=== PATIENT | female | born 1955 | race Caucasian/White ===

== ENCOUNTER 2020-01-16 16:19 | Emergency (ER) | payer OTHER, SELFPAY ==
--- NOTE | ~2020-01-16 | XR_ITS ---
EXAMINATION: XR chest 2V 01/16/2020 17:20 INDICATION: Chest palpitations. Atrial fibrillation. PROCEDURE: 2 view chest COMPARISON: 03/14/2017 FINDINGS: The lungs are clear. There are calcified granulomas in the right lung base. There are kasia cystectomy clips. The cardiomediastinal silhouette is within normal limits. There are no pleural eff usions. There is no pneumothorax suspected. IMPRESSION: 1: NO ACUTE CARDIOPULMONARY DISEASE. Reviewed, dictated and finalized at location A.
[2020-01-16 16:17] VITALS: PULSE 94; RESP 20; TEMP 36.7; O2SAT 93
--- NOTE | 2020-01-16 16:25 | ECG_ITS ---
Measurements Intervals Ashley Rate: 95 P: RI: 0 QRS: -24 QRSD: 94 T: 1 QT: 372 QTc: 469 Interpretive Statements ATRIAL FIBRILLATION MISSING LEAD V3 LOW VOLTAGE IN PRECORDIAL LEADS POOR R WAVE PROGRESSION, ANTERIOR LEADS BORDERLINE T WAVE ABNORMALITY- ANTEROLAT/INF LEADS ABNORMAL ECG Electronically Signed On 01-17-2020 7:07:28 CDT by Vince Figueroa D.O.
--- NOTE | 2020-01-16 16:42 | ED.ARRPALP ---
HPI - Arrhythmia/Palpitations General Chief Complaint: Arrhythmia/Palpitations Stated Complaint: palpitations Time Seen by Provider: 01/16/20 16:27 Source: patient Mode of arrival: EMS Limitations: no limitations History of Present Illness HPI narrative: Patient 64 years old white female came from [facility] home with a chief complaint of palpitation, intermittent dizziness and shaky feeling since early a.m. History of intermittent shortness of breath for the last 1-1/2 weeks, patient on BiPAP. History of atrial fibrillation on Eliquis. Currently patient is asymptomatic. Patient telling me that she is bored to . MD complaint: palpitations Onset (ago): unknown Duration: now resolved Severity: similar to previous episodes Context: occurred during rest Arrhythmia history: atrial fibrillation Associated symptoms: anxiety Treatments prior to arrival: other (None) Related Data Home Medications Medication Instructions Recorded Confirmed atorvastatin 20 mg tablet 20 mg PO DAILY 10/08/19 cholecalciferol (vitamin D3) 50 2,000 unit PO DAILY 10/08/19 mcg (2,000 unit) tablet ibuprofen 200 mg capsule 200 mg PO Q6H PRN 10/08/19 lisinopril 20 mg tablet 20 mg PO DAILY 10/08/19 multivitamin 1 tablet PO DAILY 10/08/19 venlafaxine 75 mg capsule,extended 75 mg PO DAILY 10/08/19 release 24 hr duloxetine 30 mg PO BID 01/16/20 01/16/20 metoprolol succinate 25 mg PO DAILY 01/16/20 01/16/20 Allergies Allergy/AdvReac Type Severity Reaction Status Date / Time Cephalosporins Allergy Unknown Unknown Verified 01/16/20 16:21 Review of Systems Review of Systems: Narrative: CONSTITUTIONAL: Denies fever, chills, or sweats. EYES: Denies visual changes, redness, or discharge. ENT: Denies rhinorrhea, congestion, sore throat, or otalgia. CARDIOVASCULAR: Denies chest pain, palpitations, or edema. RESPIRATORY: Denies cough or dyspnea. GASTROINTESTINAL: Denies abdominal pain, nausea, vomiting, or diarrhea. GENITOURINARY: Denies dysuria or hematuria. SKIN: Denies rash or itching. MUSCULOSKELETAL: Denies back pain, joint pain, or myalgia. NEUROLOGIC: Denies headache, numbness, or weakness. PSYCHIATRIC: Denies anxiety or depression. [facility] Past Medical History Medical History Anemia, unspecified Central sleep apnea Chronic bilateral low back pain without sciatica Chronic fatigue, unspecified Essential hypertension Obstructive sleep apnea Other insomnia Palpitations with regular cardiac rhythm Prediabetes Pure hypercholesterolemia Shortness of breath Family History Family History Mother Carcinoma of colon Family history of malignant neoplasm of ovary Cerebrovascular accident Patient's mother is Grandparent Family history of malignant neoplasm of gastrointestinal tract Father Family history of alcoholism Family history of diabetes mellitus in first degree relative Family history of heart disease in male family member before age 55 Diabetes mellitus Family history of obesity Family history of cardiovascular disease Other Family history of lung cancer Family history of pancreatic cancer Social History Social History Smoking status: Never smoker Alcohol intake: never Exam Narrative: Exam Narrative: General appearance: Well-developed, well-nourished Skin: Normal color Head: Normocephalic, nontraumatic Eyes: Clear conjunctiva ENT: Oropharynx normal, ears normal, nose normal Neck: Supple, nontender Chest and respiratory: Airway patent, no respiratory distress, no accessory muscle use Heart: Irregular irregularity Abdomen: Soft, nontender, no organomegaly, quiet bowel sounds Vascular: Normal peripheral pulses, normal capillary refill. Musculoskeletal: Normal range of motion, nontender back Neurologic: Alert and oriented ?3, [employer] RUNNER is normal as
[2020-01-16 16:49] LABS: Basophils Percent Auto 0.4 % (0.2-1.2); Eosinophils Absolute Auto 0.3 K/mm3 (0-0.3); Eosinophils Percent Auto 3.7 % (0-4.4); Hematocrit 45.6 % (37.0-47.0); Hemoglobin 14.9 g/dL (12.0-15.0); Immature Granulocyte Absolute 0.03 K/mm3 (0.00-0.031); Immature Granulocyte Percent A 0.3 % (0-0.5); Lymphocytes Absolute Auto 2.52 K/mm3 (0.9-3.2); Mean Corpuscular HGB Conc 32.7 g/dl (32-36); Mean Corpuscular Volume 91.9 fl (80-100); Mean Platelet Volume 11.2 fl (7.4-10.4); Monocytes Percent Auto 10.9 % (2.6-8.5); Neutrophils Absolute Auto 5.1 K/mm3 (1.3-6.7); Neutrophils Percent Auto 56.7 % (45.5-73.1); Platelet Count Result 246 k/mm3 (150-375); Red Blood Count 4.96 M/mm3 (4.2-5.4); Red Cell Distribution Width 13.5 % (11.5-14.5)
[2020-01-16 16:59] LABS: INR 1.1; Prothrombin Time 13.4 Seconds (11.1-14.7)
[2020-01-16 17:00] LABS: Partial Thromboplastin Time 36.3 SECONDS (22.3-36.8)
[2020-01-16 17:02] LABS: Blood Urea Nitrogen 21 mg/dL (7-17); Calcium 9.2 mg/dL (8.4-10.2); Carbon Dioxide 25 mmol/L (22-30); Chloride 104 mmol/L (98-107); Estimated CRCL calculation 46 ml/min; Estimated Glomerular Filt Rate 45; Glucose 151 mg/dL (65-105); Sodium 138 mmol/L (137-145)
[2020-01-16 17:28] LABS: Troponin I < 0.012 ng/mL (0.000-0.034)
[2020-01-16] MEDS: LORAZEPAM INJ 2 MG/ML VIAL 1 MG IV PUSH (17:51)
[2020-01-16 18:51] VITALS: BP 122/80; PULSE 80; RESP 18; TEMP 36.7; O2SAT 98
== END 2020-01-16 18:54 ==
PROVIDERS: Emergency Provider Emergency Medicine; PCP Family Medicine
DX: R00.2 Palpitations (principal); F41.9 Anxiety disorder, unspecified; I48.91 Unspecified atrial fibrillation; I10 Essential (primary) hypertension; E78.00 Pure hypercholesterolemia, unspecified; G47.00 Insomnia, unspecified; R73.03 Prediabetes; G47.30 Sleep apnea, unspecified; Z79.01 Long term (current) use of anticoagulants; R94.31 Abnormal electrocardiogram [ECG] [EKG]
CPT/HCPCS: 36415; 71046; 80048; 84484; 85025; 85610; 85730; 93005; 96374; 99284; J2060

== ENCOUNTER 2020-07-16 11:46 | Emergency (ER) | payer OTHER, SELFPAY ==
--- NOTE | ~2020-07-16 | XR_ITS ---
XR knee LT min 4V 07/16/2020 12:54 Indication: Left knee pain Procedure: 4 views left knee Comparison: 07/28/2013 Findings: No acute fracture or traumatic malalignment. There is heterotopic ossification superior to the patella. Small joint effusion. Mild osteoarthritis of the left knee. Impression: 1: No acute fracture. 2: Small joint effusion. Reviewed, dictated and finalized at location A. Impression: 1: No acute fracture. 2: Small joint effusion.
[2020-07-16 11:55] VITALS: BP 159/101; PULSE 62; RESP 20; TEMP 36.8; O2SAT 95
[2020-07-16] MEDS: HYDROcodone/acetaminophen (*CRX) 5-325 MG TABLET 1 TAB PO (12:58)
[2020-07-16 12:59] VITALS: BP 127/80; PULSE 70; RESP 20; O2SAT 95
--- NOTE | 2020-07-16 13:18 | ED.LOWEXIN ---
HPI - Extremity Injury (Lower) General Chief Complaint: Extremity Injury, Lower Stated Complaint: L Knee Pain Time Seen by Provider: 07/16/20 12:03 Source: patient Mode of arrival: EMS Limitations: no limitations History of Present Illness HPI Narrative: This is a 64-year-old female that presents the emergency department for left knee pain after an injury today. Reports she was walking and felt a pop. Reports this caused her to fall forward and landed on the knee. Reports she has been having pain in the knee for the last couple of days. Pain is worse with movement and relieved with rest. Denies hitting her head, loss of consciousness, other injuries, weakness, or numbness. Related Data Home Medications Medication Instructions Recorded Confirmed atorvastatin 20 mg tablet 20 mg PO DAILY 10/08/19 cholecalciferol (vitamin D3) 50 2,000 unit PO DAILY 10/08/19 mcg (2,000 unit) tablet ibuprofen 200 mg capsule 200 mg PO Q6H PRN 10/08/19 lisinopril 20 mg tablet 20 mg PO DAILY 10/08/19 multivitamin 1 tablet PO DAILY 10/08/19 venlafaxine 75 mg capsule,extended 75 mg PO DAILY 10/08/19 release 24 hr metoprolol succinate 25 mg PO DAILY 01/16/20 01/16/20 Allergies Allergy/AdvReac Type Severity Reaction Status Date / Time Cephalosporins Allergy Unknown Unknown Verified 07/16/20 11:59 Review of Systems Review of Systems: Narrative: CONSTITUTIONAL: Denies fever MUSCULOSKELETAL: Reports joint pain, and myalgia. NEUROLOGIC: Denies headache, numbness, or weakness. All systems reviewed & are unremarkable except as noted in HPI and below PMFSH Past Medical History Medical History (Updated 07/16/20 @ 14:17 by Anusha Day PA-C) Anemia, unspecified Central sleep apnea Chronic bilateral low back pain without sciatica Chronic fatigue, unspecified Essential hypertension Obstructive sleep apnea Other insomnia Palpitations with regular cardiac rhythm Prediabetes Pure hypercholesterolemia Shortness of breath Family History Family History Mother Carcinoma of colon Family history of malignant neoplasm of ovary Cerebrovascular accident Patient's mother is Grandparent Family history of malignant neoplasm of gastrointestinal tract Father Family history of alcoholism Family history of diabetes mellitus in first degree relative Family history of heart disease in male family member before age 55 Diabetes mellitus Family history of obesity Family history of cardiovascular disease Other Family history of lung cancer Family history of pancreatic cancer Social History Social History Smoking status: Never smoker Alcohol intake: never Exam Narrative: Exam Narrative: GENERAL: Well-appearing, well-nourished, and in no acute distress. HEAD: Normocephalic, atraumatic. EYES: PERRLA and EOMI. ENT: Nares clear, no rhinorrhea or epistaxis. Mucous membranes moist. Oropharynx without tonsillar hypertrophy exudate or other lesions. NECK: Supple. No adenopathy or masses. CHEST: Clear to auscultation. No respiratory distress. No wheezes rales or rhonchi HEART: Regular rate and rhythm. No murmur heard. Normal peripheral pulses. EXTREMITIES: Normal range of motion. No edema, erythema or obvious deformity. Normal DP pulses. Normal sensation SKIN: Warm, dry, no rash. NEURO: No focal deficits. Alert and oriented x3. PSYCH: Normal mood and affect Course Vital Signs Vital signs: Vital Signs Temperature 98.2 F 07/16/20 11:55 Pulse Rate 62 07/16/20 11:55 Respiratory Rate 20 07/16/20 11:55 Blood Pressure 159/101 H 07/16/20 11:55 Pulse Oximetry 95 07/16/20 11:55 Temperature 98.2 F 07/16/20 11:55 Pulse Rate 70 07/16/20 12:59 Respiratory Rate 20 07/16/20 12:59 Blood Pressure 127/80 07/16/20 12:59 Pulse Oximetry 95 07/16/20 12:59 MDM - Extremity Injury (Lo
[2020-07-16 14:34] VITALS: BP 127/81; PULSE 60; RESP 20; O2SAT 95
== END 2020-07-16 15:02 | disposition home or self-care (01) ==
PROVIDERS: Emergency Provider Family Medicine; PCP Family Medicine
DX: S83.92XA Sprain of unspecified site of left knee, initial encounter (principal); I10 Essential (primary) hypertension; E78.00 Pure hypercholesterolemia, unspecified; R73.03 Prediabetes; G47.31 Primary central sleep apnea; G47.33 Obstructive sleep apnea (adult) (pediatric); Z86.2 Personal history of diseases of the blood and blood-forming organs and certain disorders involving the immune mechanism; W18.39XA Other fall on same level, initial encounter
CPT/HCPCS: 73564; 99283; A9270

== ENCOUNTER 2020-09-25 10:07 | Outpatient (RCR) | payer OTHER, SELFPAY ==
--- NOTE | 2020-09-25 11:38 | PTOPEVAL ---
PHYSICAL THERAPY EVALUATION/DISCHARGE Thank you for referring Jessica Fowler to [facility].? The patient was evaluated for left knee pain, and found no skilled PT needs now-her knee is feeling better (see details below). The patient was given home exercises and plans to call PT if needs arise. Please review, sign, date and return this plan of care SERGE. I agree with and certify the following plan. Referring Physician Date Attending Provider: Chidi Alaniz MD Referring Provider: Chidi Alaniz MD *PT Outpatient Evaluation Start: 09/25/20 10:17 Freq: Status: Active Protocol: Document 09/25/20 10:29 [facility] (Rec: 09/25/20 11:24 [facility] [id number]) Assessment Status Evaluation Evaluation Information Problem Diagnosis left knee pain Onset 07/16/20 Cause fell Additional Evaluation Detail Patient fell and went to ER- had xrays and had no fracture. The pain continued so patient saw MD regarding knee. The MD reported to her, knee OA/DJD and to try therapy. The patient had occasions of knee pain prior to the fall, more if on her feet too much. The patient now has pain at night and with weightbearing activities and has complaint of stiffness. The patient has occasions of stabbing pains at quad at rest now. Subjective Information The patient feels her knee is Query Text:As Reported By Patient/ better now since time has Family passed and feels she may not need therapy at this point- agrees to the assessment to determine if needs are present. Diagnostic Tests X-Rays For This Problem Yes: no fractures Prior Level of Function Medications Home Meds (Include: OTC, RX, Vitamins, for knee: tylenol prn Herbals, Dose, Route,and Frequency) Query Text:Home Med Entries Will No Longer Recall From Past Visits. Home Meds Must Be Re-entered With Each Visit. Home Setting Home Type Apartment Environmental Barriers Elevator Living Situation Alone Support Available None Mobility Assistive Devices (Used Last 3 Cane Months) Pain Assessment Timing of Pain Assessment Timing of Pain Assessment Assessment Pain Scale Pain Scale Used Numeric (1 - 10) Self Report Pain Assessment Left Knee(s
== END 2020-09-26 08:53 | disposition home or self-care (01) ==
LOC: ANHPT 10:07
PROVIDERS: PCP Family Medicine; Referring Provider Orthopaedic Surgery; Visit Provider Orthopaedic Surgery
DX: M17.12 Unilateral primary osteoarthritis, left knee (principal)
CPT/HCPCS: 97110; 97161

== ENCOUNTER 2020-10-13 11:53 | Outpatient (CLI) | payer OTHER, SELFPAY ==
--- NOTE | ~2020-10-13 | XR_ITS ---
XR lumbar spine 2-3V DATE: 10/13/2020 12:17 INDICATION: Back pain TECHNIQUE: AP, lateral, coned lateral lumbosacral views COMPARISON: 03/04/2014 MRI lumbar spine FINDINGS: There is diffuse osteopenia. Degenerative spurring of the lower thoracic spine. There is mild degenerative disc disease at L1-2. There is moderate degenerative disc disease and mild retrolisthesis at L2-3. There is mild degenerative disc disease at L3-4, L4-5 and L5-S1. There is minimal anterolisthesis at L4-5 and greater, approximately 5 mm grade 1 anterolisthesis at L5-S1 due to degenerative change at the apophyseal joints. There is a rudimentary disc at S1-2. No fracture or bone destruction. The lumbar pedicles are intact. The sacroiliac joints are unremarkable. Multiple surgical clips overlie right upper quadrant, likely due to cholecystectomy. IMPRESSION: Multilevel degenerative disc disease and degenerative change at the apophyseal joints, as sociated grade 1 anterolisthesis at L4-5 and L5-S1 Reviewed, dictated and finalized at location B. [employer] WORK[employer] IMPRESSION: Multilevel degenerative disc disease and degenerative change at the apophyseal joints, associated grade 1 anterolisthesis at L4-5 and L5-S1
== END 2020-10-13 11:54 | disposition home or self-care (01) ==
PROVIDERS: PCP Family Medicine; Visit Provider Family Medicine
DX: M51.36 Other intervertebral disc degeneration, lumbar region (principal)
CPT/HCPCS: 72100

== ENCOUNTER → 2021-05-11 08:40 | Outpatient (CLI) | payer OTHER, SELFPAY ==
--- NOTE | 2021-06-06 18:45 | WPDSLEEPSTUD ---
Sleep Study Date of Study: 05/11/21 Ordering Provider: Bjorn Dela Cruz, Interpreting Physician: Darling Ruiz MD Sleep Study Type: BiPAP Titration Height: 1.6 m Weight: 98.43 kg Body Mass Index: 38.4 Neck Circumference (inches): 17 [place]od[place]: 7 Reason for Sleep Study Documented mild obstructive sleep apnea dating back to 2015, and in 2018 mixed sleep apnea with insufficient CPAP titration; * most recent nocturnal polysomnogram with a CPAP titration April 19, 2021 showed pressures from 5-12 cm with an AHI of 25.8 and a minimum saturation of 87%. She was not fully titrated she had central and mixed apneas. Sleep History Jessica Fowler is a 65 year old female with a split night polysomnogram on January 03, 2016 showing mild obstructive sleep apnea with an AHI of 10.4 with moderate to loud snoring and oxygen desaturation. She had a final pressure of CPAP 9 cm which corrected respiratory events however she did not have any REM. She had on September 21, 2018 a full night CPAP titration with CPAP initiated at 7 cm and increased to a total of 20 cm. Her sleep efficiency was low until she reached 14 cm. She had central apneas that were apparent at an initial pressure of 7. There was no adequate pressure that was optimal. She had central apneas from and low pressure and this raises the question of whether not it was due to the treatment, or if she also had developed complex sleep apnea. She returns to the sleep lab at this point for a CPAP BiPAP titration. She is currently off of treatment due to a dysfunction of her device. She is having daytime fatigue, atrial fibrillation which is difficult control. Her BMI is 37.7 which is higher. She has gained 30 lb in the last year. EF is 65-70% on and echo 01/16/2021 [facility] Past Medical History Medical History (Updated 06/06/21 @ 18:58 by Darling Ruiz MD) Anemia, unspecified Arthritis of left knee Breast cancer Cardiac arrhythmia Central sleep apnea Chronic bilateral low back pain without sciatica Chronic fatigue, unspecified Diabetes Essential hypertension H/O TIA (transient ischemic attack) and stroke Hemoglobin A1c less than 7.0% A1c noted by pt as 5.2 Hypertension Obstructive sleep apnea Other insomnia Palpitations with regular cardiac rhythm Prediabetes Pure hypercholesterolemia Shortness of breath Uterine cancer Surgical History Surgical History H/O skin graft H/O: section H/O: hysterectomy History of cholecystectomy S/P cervical spinal fusion march of 2020 Family History Family History Mother Carcinoma of colon Family history of malignant neoplasm of ovary Cerebrovascular accident Patient's mother is Grandparent Family history of malignant neoplasm of gastrointestinal tract Father Family history of alcoholism Family history of diabetes mellitus in first degree relative Family history of heart disease in male family member before age 55 Diabetes mellitus Family history of obesity Family history of cardiovascular disease Other Family history of lung cancer Family history of pancreatic cancer Social History Social History Smoking status: Never smoker Alcohol intake: current Gender identity (if verbalized by the patient): Female Medications Home Medications Medication Instructions Recorded Confirmed Type cholecalciferol (vitamin D3) 50 2,000 unit PO DAILY 10/08/19 11/07/20 History mcg (2,000 unit) tablet lisinopril 20 mg tablet 20 mg PO DAILY 10/08/19 11/07/20 History multivitamin 1 tablet PO DAILY 10/08/19 11/07/20 History apixaban 5 mg tablet 5 mg PO BID #60 tablet 10/27/19 11/07/20 Rx metoprolol succinate 25 mg PO DAILY 01/16/20 11/07/20 History duloxetine 30 mg capsule,delayed 30 mg PO BID #90 cap 03/06/20 11/07/20 Rx release sprinkle
[2021-06-06 18:50] VITALS: BMI 38.4
== END ==
PROVIDERS: PCP Family Medicine; Visit Provider Student in an Organized Health Care Education/Training Program
DX: G47.33 Obstructive sleep apnea (adult) (pediatric) (principal)
CPT/HCPCS: 95811

== ENCOUNTER 2022-03-16 09:33 | Emergency (ER) | payer OTHER, SELFPAY ==
--- NOTE | ~2022-03-16 | XR_ITS ---
XR wrist RT min 3V 03/16/2022 09:54 Indication: Right wrist pain Procedure: 4 views right wrist Comparison: No prior studies for comparison. Findings: There is advanced osteoarthritis joints including the triscaphe, first CMC and MCP joints. Osteopenia. No acute fracture is identified. No focal soft tissue abnormality. No foreign bodies. Impression: 1: No acute fracture. Reviewed, dictated and finalized at location A. Impression: 1: No acute fracture.
--- NOTE | ~2022-03-16 | XR_ITS ---
XR shoulder RT min 2V 03/16/2022 09:54 INDICATION: Right shoulder pain after fall PROCEDURE: 4 views right shoulder COMPARISON: No prior studies for comparison. FINDINGS: There is a nondisplaced fracture of the humeral head/neck involving the region of the great er tuberosity. There is polyarticular osteoarthritis. The soft tissues appear within normal limits. No foreign bodies are identified. IMPRESSION: 1: Nondisplaced fracture of the humeral head/neck in the region of the greater tuberosity. Reviewed, dictated and finalized at location A.
--- NOTE | ~2022-03-16 | XR_ITS ---
XR elbow RT min 3V 03/16/2022 09:54 INDICATION: Right elbow pain after fall PROCEDURE: 4 views right elbow COMPARISON: No prior studies for comparison. FINDINGS: Fracture, dislocation or subluxation is not identified. No significant joint effusion. The soft tissues appear within normal limits. No foreign bodies are identified. IMPRESSION: 1: NO ACUTE BONE OR JOINT ABNORMALITY IDENTIFIED. Reviewed, dictated and finalized at location A.
[2022-03-16 09:32] VITALS: BP 156/78; PULSE 93; RESP 16; TEMP 36.9; O2SAT 96
[2022-03-16] MEDS: ACETAMINOPHEN 500 MG TABLET 1000 MG PO (10:00)
--- NOTE | 2022-03-16 10:01 | ED.FALL ---
HPI - Fall General Chief Complaint: Fall Stated Complaint: fall, R shoulder pain Time Seen by Provider: 03/16/22 09:34 History of Present Illness HPI Narrative: 58-year-old female presents here after fall, she tripped over her shoes, and falling onto her outstretched right arm, she is endorsing pain mostly in her right shoulder, states some mild pain in her right wrist and elbow but mostly when she moves her arm she is having pain in the shoulder. No focal numbness or weakness. No loss of consciousness, injury to her head, pain anywhere else, chest pain or shortness of breath. Related Data Home Medications Medication Instructions Recorded Confirmed cholecalciferol (vitamin D3) 50 2,000 unit PO DAILY 10/08/19 11/07/20 mcg (2,000 unit) tablet lisinopril 20 mg tablet 20 mg PO DAILY 10/08/19 11/07/20 multivitamin 1 tablet PO DAILY 10/08/19 11/07/20 metoprolol succinate 25 mg 25 mg PO DAILY 01/16/20 11/07/20 tablet,extended release 24 hr brimonidine 0.2 % eye drops 1 drp ophthalmic (eye) Q8H 07/20/20 11/07/20 methocarbamol 750 mg tablet 750 mg PO QID 07/20/20 11/07/20 apixaban 5 mg tablet (Eliquis) mg 03/16/22 03/16/22 brimonidine 0.2 % eye drops drp 03/16/22 duloxetine 30 mg capsule,delayed cap PO 03/16/22 release latanoprost 0.005 % eye drops drp 03/16/22 metoprolol succinate 25 mg mg PO 03/16/22 tablet,extended release 24 hr trazodone 50 mg tablet tablet 03/16/22 Allergies Allergy/AdvReac Type Severity Reaction Status Date / Time Cephalosporins Allergy Unknown Unknown Verified 03/16/22 09:58 Review of Systems Review of Systems: CONST: No fever. HEAD: No head trauma NECK: No neck pain C/V: No chest pain RESP: No difficulty breathing GI: No nausea or vomiting M/S: Right shoulder pain SKIN: Bruising right elbow NEURO: [No headache or focal numbness or weakness] PSYCH: [No depression] PMFSH Past Medical History Medical History Anemia, unspecified Arthritis of left knee Breast cancer Cardiac arrhythmia Central sleep apnea Chronic bilateral low back pain without sciatica Chronic fatigue, unspecified Diabetes Essential hypertension H/O TIA (transient ischemic attack) and stroke Hemoglobin A1c less than 7.0% A1c noted by pt as 5.2 Hypertension Obstructive sleep apnea Other insomnia Palpitations with regular cardiac rhythm Prediabetes Pure hypercholesterolemia Shortness of breath Uterine cancer Surgical History Surgical History H/O skin graft H/O: section H/O: hysterectomy History of cholecystectomy S/P cervical spinal fusion march of 2020 Family History Family History Mother Carcinoma of colon Family history of malignant neoplasm of ovary Cerebrovascular accident Patient's mother is Grandparent Family history of malignant neoplasm of gastrointestinal tract Father Family history of alcoholism Family history of diabetes mellitus in first degree relative Family history of heart disease in male family member before age 55 Diabetes mellitus Family history of obesity Family history of cardiovascular disease Other Family history of lung cancer Family history of pancreatic cancer Social History Social History Smoking status: Never smoker Alcohol intake: current Gender identity (if verbalized by the patient): Female Exam Narrative: EXAMINATION OF ORGAN SYSTEMS/BODY AREAS: Constitutional: Vital signs per nursing GENERAL: Appears slightly uncomfortable in the bed HEAD: Normal with no signs of head trauma. EYES: EOMI, conjunctiva normal ENT: Hearing grossly intact LUNGS: Nonlabored breathing. HEART: [Regular rate and rhythm] ABD: [Soft], [nontender to palpation] EXT: Full range of motion but pain in right shoulder with movement of righ
[2022-03-16 10:35] VITALS: BP 150/90; PULSE 80; RESP 16; O2SAT 96
--- NOTE | 2022-03-16 10:52 | PC.NURSE ---
Radiology unable to burn CD; pt. aware needs to have follow up MD asked to have images pushed to him or her.
--- NOTE | 2022-03-21 07:57 | PC.NURSE ---
LATE ENTRY. THE PT'S INJURY WAS ON HER R SHOULDER.
== END 2022-03-16 10:50 | disposition home or self-care (01) ==
PROVIDERS: Emergency Provider Emergency Medicine; PCP Family Medicine
DX: S42.254A Nondisplaced fracture of greater tuberosity of right humerus, initial encounter for closed fracture (principal); E11.9 Type 2 diabetes mellitus without complications; I10 Essential (primary) hypertension; E78.00 Pure hypercholesterolemia, unspecified; R53.82 Chronic fatigue, unspecified; M17.12 Unilateral primary osteoarthritis, left knee; G47.31 Primary central sleep apnea; Z86.2 Personal history of diseases of the blood and blood-forming organs and certain disorders involving the immune mechanism; Z86.73 Personal history of transient ischemic attack (TIA), and cerebral infarction without residual deficits; Z85.3 Personal history of malignant neoplasm of breast; Z85.42 Personal history of malignant neoplasm of other parts of uterus; Z79.01 Long term (current) use of anticoagulants; W18.09XA Striking against other object with subsequent fall, initial encounter
CPT/HCPCS: 73030; 73080; 73110; 99284; A4565; A9270

== ENCOUNTER 2022-12-03 08:06 | Outpatient (CLI) | payer OTHER, MEDICAID, SELFPAY ==
--- NOTE | 2022-12-27 18:47 | WPDSLEEPSTUD ---
Sleep Study Date of Study: 12/03/22 Ordering Provider: Matt Dixon, DO Interpreting Physician: Paty Oliva, Sleep Study Type: BiPAP Titration Height: 1.6 m Weight: 101.605 kg Body Mass Index: 39.6 Neck Circumference (inches): 19 [place]: 9 Reason for Sleep Study She had a split night polysomnogram on January 03, 2016 showing mild obstructive sleep apnea with an AHI of 10.4 with moderate to loud snoring and oxygen desaturation.? She had a final pressure of CPAP 9 cm which corrected respiratory events however she did not have any REM.? She had on September 21, 2018 a full night CPAP titration with CPAP initiated at 7 cm and increased to a total of 20 cm.? Her sleep efficiency was low until she reached 14 cm.? She had central apneas that were apparent at an initial pressure of 7.? There was no adequate pressure that was optimal.? She had central apneas from and low pressure and this raises the question of whether not it was due to the treatment, or if she also had developed complex sleep apnea.?She had a BPAP Titration on 05/11/2021 and her optimal pressure was BPAP 22/18 cm H2O. Her most recent compliance data shows a residual AHI of 14.9. Sleep History The patient is a 67-year-old female with atrial fibrillation, hypertension, hyperlipidemia, stage 3 chronic kidney disease, depression, chronic back pain and LOYD on BPAP that had a sleep study ordered by her nitroglycerin supervisor due to an elevated residual AHI on her most recent compliance report. the patient occasionally awakens from sleep short of breath. She rarely awakens at night with heartburn, belching or cough. She constantly snores loudly enough that others complain. She frequently has trouble sleeping when she has a cold. He rarely sweats excessively at night. She occasionally has heart palpitations or irregular heartbeats during the night. She frequently falls asleep during the day but never while driving. She occasionally experiences loss of muscle tone when extremely emotional. She occasionally feels unable to move when waking up or falling asleep. She denies hypnagogic / hypnopompic hallucinations. She denies feeling afraid of going to sleep. She occasionally has nightmares. She rarely remembers her dreams. She occasionally has thoughts racing through her mind. She frequently feels sad, depressed and anxious. She frequently has muscular tension. She occasionally notices parts of her body jerk. She occasionally kicks during the night. She denies having crawling and aching feelings in her legs but frequently has leg pain during the night. She rarely grinds her teeth during sleep and rarely awakens with morning jaw pain. She is frequently bothered by pain during the day and frequently awakened by pain during the night. She constantly wakes up feeling stiff in the morning. She constantly wakes up with sore or achy muscles. She constantly wakes up with pain in the neck, spine and other joints. The patient goes to bed between 8-10 p.m. on weekdays and between 6-10 p.m. on the weekends. It takes her 1 hour to fall asleep. She wakes up 3 times throughout the night due to pain or to urinate. She is able to fall asleep quickly. She wakes up between 9-11 a.m. on both weekdays and weekends. She does not stay in bed after waking up in the morning. She currently lives alone. She does not consume any caffeinated beverages within 2 hours of bedtime. She does not engage in physical exercise before bedtime. She will watch television before falling asleep. She will take naps in the afternoon or the evening but they are not refreshing. She drinks 1-2 cups of caffeinated beverage per day. She denies tobacco use. She rarely consumes alcohol. She denies recreational drug use. [facility] Past Medical History Medical History Abnormal mammogram of right breast Acquired spondylolisthesis Anemia, unspecified Arthritis of left kn
[2022-12-27 18:48] VITALS: BMI 39.6
== END 2022-12-04 06:07 | disposition home or self-care (01) ==
PROVIDERS: PCP Registered Nurse; Visit Provider Internal Medicine Pulmonary Disease
DX: G47.33 Obstructive sleep apnea (adult) (pediatric) (principal); I48.91 Unspecified atrial fibrillation; E78.5 Hyperlipidemia, unspecified; N18.30 Chronic kidney disease, stage 3 unspecified; I12.9 Hypertensive chronic kidney disease with stage 1 through stage 4 chronic kidney disease, or unspecified chronic kidney disease
CPT/HCPCS: 95811

== ENCOUNTER 2024-03-03 10:30 | Outpatient (RCR) | payer MEDICARE, SELFPAY ==
--- NOTE | 2024-01-20 10:15 | OPREHPOC ---
Outpatient Therapy Plan of Care This is a Multidisciplinary Plan of Care that may contain components documented by all disciplines (PT, OT, and ST.) PT Problem 1 PT Problem #1 Knowledge Deficit PT Goal 1 Goal *indep with HEP PT Problem 2 PT Problem #2 Pain PT Goal 1 Goal 1* pain rating at worst of 4/10 2* self assessment functional Oswestry rating of 40% limitation in activity level 3* pt report standing/walking/ activity level of 45 minutes PT Problem 3 PT Problem #3 Impaired Strength PT Goal 1 Goal increase strength of trunk and LE's, to improve mobility: 1* pt perform 20 reps of mat strengthening exercises 2* 2 minute walking test distance of 325' with cane
--- NOTE | 2024-01-20 10:15 | PTOPEVAL1 ---
Assessment and note entered by Lydia Alvarado, PT Evaluation Information Assessment Status Evaluation Diagnosis s/p lumbar laminectomy Onset Nov 03, 2023 Subjective Information surgery has helped her back pain, but still have back pain; use cane or rollator for walking; previously used cane only when going out of her home; had in home therapy after surgery and do exercises they gave her--supine knee/chest, piriformis stretch, hip abduction; sitting marching; live in senior apartment complex; does not drive; is indep with bathing, dressing and in home tasks; GOAL: more flexibility of back and SIJ's; not have as much pain; Reported Pain Level Pain Score Self Report Additional Pain Score Comments pain range of the past few days 0-7/10; L SIJ and lumbar spine; increase pain: getting out of bed; rolling and position change in bed; problems falling asleep and getting comfortable; decrease pain: heat, over the counter meds reported standing/walking tolerance of 30 minutes; sleep tolerance 4-5 hours/ night Assessment PT Clinical Summary Jessica has the diagnosis of s/p lumbar laminectomy in October. Self assessment Oswestry rating of 52% limitation in activity level. She uses a cane or rollator for mobility. She lives in an apartment and is indep with her self care and light home tasks. With [facility] PT, she has some exercises she has been doing. Her medical history includes arthritis of both knees, cervical surgery, cancer of breast and uterus. With the evaluation: weakness of trunk and LE's, with pain over low back, L SIJ and both knees; poor standing posture; lumbar incisions with adherent tissue and spasms; tightness over hamstrings, anterior hip-quads; pain is increased with trunk & hip extension; 2 minute walking test distance of 250' with the cane and pain increased to 3/10. Skilled PT services are indicated for modalities to decrease pain; therap
--- NOTE | 2024-03-03 11:16 | PTOPDC ---
Assessment and note entered by Lydia Alvarado, PT Assessment Status Discharge Diagnosis s/p lumbar laminectomy Onset Nov 03, 2023 Subjective Information saw primary dr yesterday--pleased with how I was walking; been doing the exercises at home, but sit/stand ones are hard due to knees hurting; use cane when have more pain; overall, feeling better , pain is less- the injection helped; am good with making today her last day of therapy. Is going to make an ortho appointment to have her knees checked; also have hip pain-- ? arthritis or from her back. Reported Pain Level Pain Score Self Report Additional Pain Score Comments pain range in the past week 0-6/10; radicular pain into L LE intermittent to lateral knee and both lateral hips at times; increase pain: bend forward, vacuum, decrease pain: sit/rest, take arthritis med, have not been using the heating pad very much lately--too lazy to get it out of closet; reported standing/walking tolerance: 1 hour Assessment PT Clinical Summary Jessica has received 10 PT sessions, on land and in the water. Compared to the initial evaluation: pain at worst from 0-7/10 to 0-6/10, with intermittent radicular pain into L LE to knee; is no longer using the rollator and uses cane PRN for increase pain and distances; reported standing/walking from 30 minutes to 60 minutes; Self assessment Oswestry functional score from 52% to 26%; 2 minute walking test distance from 250' with cane to 430' without device; increase strength of trunk and hips with mat exercises; education for HEP and pain control techniques. The goals were partially met. Discharge PT, she is to continue with her HEP- aquatic and land and pain management techniques. Plan of Care PT Services Indicated No
== END 2024-03-03 12:40 | disposition home or self-care (01) ==
LOC: ANHPT 10:30
PROVIDERS: PCP Registered Nurse; Visit Provider Nurse Practitioner
DX: M46.1 Sacroiliitis, not elsewhere classified (principal); Z98.1 Arthrodesis status; Z98.890 Other specified postprocedural states
CPT/HCPCS: 97110; 97113; 97161; 97530

== ENCOUNTER 2024-03-12 09:45 | Emergency (ER) | payer MEDICARE, SELFPAY ==
--- NOTE | ~2024-03-12 | XR_ITS ---
EXAMINATION: XR shoulder LT min 2V DATE: 03/12/2024 10:38 INDICATION: Left shoulder pain. Fall. TECHNIQUE: 5 views of left shoulder were obtained. COMPARISON: Left shoulder radiograph 05/28/2022 FINDINGS: Bone alignment is normal. No fracture. There is severe osteoarthritis of glenohumeral joint and mild osteoarthritis of acromioclavicular joint. There are changes of posterior fusion procedure in cervical spine. IMPRESSION: 1. Polyarticular osteoarthritis. Reviewed, dictated and finalized at location A.
--- NOTE | ~2024-03-12 | XR_ITS ---
EXAMINATION: XR knee LT min 4V DATE: 03/12/2024 10:38 INDICATION: Anterior left knee pain. Fall. TECHNIQUE: 4 views of left knee were obtained. COMPARISON: Left knee radiographs 02/19/2023 FINDINGS: Bone alignment is normal. No fracture. There is severe osteoarthritis of medial compartment , moderate osteoarthritis of patellofemoral compartment, and mild osteoarthritis of lateral compartme nt. There is a small knee joint effusion. IMPRESSION: 1. Severe left knee osteoarthritis. 2. Small left knee joint effusion. Reviewed, dictated and finalized at location A.
--- NOTE | ~2024-03-12 | XR_ITS ---
EXAMINATION: XR lumbar spine 2-3V DATE: 03/12/2024 10:38 INDICATION: Low back pain. Fall. TECHNIQUE: 3 views of lumbar spine were obtained. COMPARISON: Lumbar spine radiographs 10/13/2020 FINDINGS: There is 5 degrees levocurvature of lumbar spine. There is 5 mm retrolisthesis of L2 on L3. There is mild chronic anterior wedging of T12 and T11 vertebral bodies. There are changes of anterio r and posterior fusion procedures from L4 to S1 with interbody devices and pedicle screws. There is a n anterior plate with screws at L5-S1. There is mildly decreased disc height at L1-L2, severely decre ased disc height at L2-L3, and moderately decreased disc height at L3-L4. There is multilevel severe facet joint osteoarthritis. There are surgical clips in the abdomen and pelvis. IMPRESSION: 1. Severe lumbar spondylosis. 2. Anterior and posterior fusion procedures from L4 to S1. Reviewed, dictated and finalized at location A.
--- NOTE | ~2024-03-12 | XR_ITS ---
EXAMINATION: XR elbow LT min 3V DATE: 03/12/2024 10:38 INDICATION: Left elbow pain. Fall. TECHNIQUE: 4 views of left elbow were obtained. COMPARISON: None. FINDINGS: Bone alignment is normal. No fracture. There is mild elbow joint osteoarthritis. There are enthesophytes at the medial and lateral humeral epicondyles. No elbow joint effusion. IMPRESSION: 1. Mild elbow joint osteoarthritis. Reviewed, dictated and finalized at location A.
[2024-03-12 09:54] VITALS: BP 165/91; PULSE 59; RESP 16; TEMP 36.4; O2SAT 99
--- NOTE | 2024-03-12 09:59 | ED.FALL ---
HPI - Fall General Chief Complaint: Fall Stated Complaint: fall, left shoulder and back pain Time Seen by Provider: 03/12/24 09:53 Source: patient Mode of arrival: ambulatory Limitations: no limitations History of Present Illness HPI Narrative: Jessica is a 68-year-old female patient presenting to the ER today with complaints of a trip and fall that occurred yesterday. She reports that she was wheeling out a bike and tripped and fell and injured her left shoulder, left humerus, left elbow, left anterior knee, is complaining of some low back pain. She denies any loss of consciousness but did hit her nose. States she did not have epistaxis at that time. She denies any nasal pain. Denies any neck pain. Rates her pain 5/10 currently and has been taking hydrocodone at home for the pain. Related Data Home Medications Medication Instructions Recorded Confirmed cholecalciferol (vitamin D3) 50 2,000 unit PO DAILY 10/08/19 02/19/23 mcg (2,000 unit) tablet lisinopril 20 mg tablet 20 mg PO DAILY 10/08/19 02/19/23 multivitamin 1 tablet PO DAILY 10/08/19 02/19/23 brimonidine 0.2 % eye drops 1 drp ophthalmic (eye) Q8H 07/20/20 02/19/23 methocarbamol 750 mg tablet 750 mg PO QID 07/20/20 02/19/23 duloxetine 30 mg capsule,delayed cap PO 03/16/22 02/19/23 release metoprolol succinate 25 mg mg PO 03/16/22 02/19/23 tablet,extended release 24 hr trazodone 50 mg tablet tablet 03/16/22 02/19/23 calcium carbonate [Caltrate 600] PO DIRECTED 03/27/22 02/19/23 latanoprost 0.005 % eye drops drp EACH EYE QPM 03/27/22 02/19/23 Allergies Allergy/AdvReac Type Severity Reaction Status Date / Time No Known Allergies Allergy Verified 03/12/24 09:58 Review of Systems Review of Systems: Pertinent positives per HPI. Patient denies any fever, chills, rash, headache, visual changes, dizziness, cough, runny nose, sore throat, shortness of breath, chest pain, palpitations, nausea, vomiting, diarrhea, constipation, abdominal pain, or any urinary issues. PMFSH Past Medical History Medical History Abnormal mammogram of right breast Acquired spondylolisthesis Anemia, unspecified Arthritis of left knee Atrial fibrillation, chronic Benign neoplasm of colon Bereavement, uncomplicated Breast cancer Cardiac arrhythmia Central sleep apnea Chondromalacia of patellofemoral joint Chronic bilateral low back pain without sciatica Chronic fatigue, unspecified Contusion of right knee, subsequent encounter Degeneration of lumbar or lumbosacral intervertebral disc Degenerative arthritis of left shoulder region Depression Diabetes Essential hypertension Glucose intolerance (impaired glucose tolerance) H/O TIA (transient ischemic attack) and stroke Hemoglobin A1c less than 7.0% A1c noted by pt as 5.2 History of anesthesia problem Hyperlipidemia, unspecified Hypertension Hypotension due to drugs IBS (irritable bowel syndrome) Kidney disease Lumbosacral spondylosis without myelopathy Major depressive disorder, single episode, unspecified MRSA (methicillin resistant Staphylococcus aureus) Neck pain Obstructive sleep apnea Osteoarthritis of knees, bilateral Other chronic pain Other insomnia Overweight (03/31/17) Palpitations with regular cardiac rhythm Patellofemoral arthritis of right knee Polyosteoarthritis, unspecified Postmenopausal Prediabetes Proximal humerus fracture Pure hypercholesterolemia Rectal bleeding Right patellofemoral syndrome Screening for osteoporosis Shortness of breath Strain of right elbow Unspecified glaucoma Uterine cancer Vitamin D deficiency, unspecified Weight gain Surgical History Surgical History H/O breast surgery H/O skin graft H/O: section H/O: hysterectomy History of cardiac radiofrequency ablation History of cholecystectomy History of eye surgery History of tonsillectomy and adeno
[2024-03-12 11:10] VITALS: BP 158/85; PULSE 59; RESP 16; TEMP 36.6; O2SAT 97
[2024-03-12 12:08] VITALS: BP 139/72; PULSE 63; RESP 16; TEMP 36.2; O2SAT 99
== END 2024-03-12 12:10 | disposition home or self-care (01) ==
PROVIDERS: Emergency Provider Nurse Practitioner Family; PCP Registered Nurse
DX: M25.472 Effusion, left ankle (principal); S50.02XA Contusion of left elbow, initial encounter; S40.012A Contusion of left shoulder, initial encounter; S39.012A Strain of muscle, fascia and tendon of lower back, initial encounter; S89.92XA Unspecified injury of left lower leg, initial encounter; M19.90 Unspecified osteoarthritis, unspecified site; I48.20 Chronic atrial fibrillation, unspecified; I10 Essential (primary) hypertension; E11.9 Type 2 diabetes mellitus without complications; Z86.73 Personal history of transient ischemic attack (TIA), and cerebral infarction without residual deficits; G47.33 Obstructive sleep apnea (adult) (pediatric); E78.00 Pure hypercholesterolemia, unspecified; E55.9 Vitamin D deficiency, unspecified; H40.9 Unspecified glaucoma; Z79.01 Long term (current) use of anticoagulants
CPT/HCPCS: 72100; 73030; 73080; 73564; 99284